=== PATIENT | female | born 1960 | race Caucasian/White ===

== ENCOUNTER → 2020-03-03 11:37 | Outpatient (BNVA) | payer MEDICAID, SELFPAY | PROVIDERS: PCP Pediatrics; Visit Provider Internal Medicine Endocrinology, Diabetes & Metabolism ==

== ENCOUNTER 2020-03-17 11:16 | Outpatient (REF) | payer MEDICAID, SELFPAY ==
[2020-03-17 14:08] LABS: Alanine Aminotransferase 15 U/L (0-31); Albumin Level 4.3 g/dL (3.5-5.0); Albumin Level 4.4 g/dL (3.5-5.0); Alkaline Phosphatase 39 U/L (39-117); Anion Gap 13 (12-20); Aspartate Amino Transferase 20 U/L (5-31); Bilirubin Total 0.4 mg/dL (0.0-1.0); Blood Urea Nitrogen 25 mg/dL (9-16); Calcium 9.2 mg/dL (8.4-10.2); Calcium 9.3 mg/dL (8.4-10.2); Carbon Dioxide 29 mmol/L (22-29); Chloride 106 mmol/L (96-108); Estimated Glomerular Filt Rate > 60; Glucose Fasting 81 mg/dL (60-99); Potassium 4.6 mmol/L (3.3-5.1); Sodium 143 mmol/L (135-145); Total Protein 6.8 g/dL (6.5-8.0)
[2020-03-17 14:39] LABS: Free T4 (Free Thyroxine) 0.95 ng/dL (0.71-1.85); Thyroid Stimulating Hormone 2.96 uIU/mL (0.32-4.0); Vitamin D 25-OH Total 39.3 ng/mL (>30)
[2020-03-23 14:47] LABS: N-Telopeptide 19 (see note); NTXCreaRU 215 mg/dL (20-275)
== END 2020-03-17 11:17 | disposition home or self-care (01) ==
LOC: HO.10HDL 11:16
PROVIDERS: Visit Provider Internal Medicine Endocrinology, Diabetes & Metabolism
DX: M81.0 Age-related osteoporosis without current pathological fracture (principal); R79.89 Other specified abnormal findings of blood chemistry
CPT/HCPCS: 36415; 80053; 82040; 82306; 82310; 82523; 84439; 84443

== ENCOUNTER 2020-05-08 16:05 | Outpatient (REF) | payer MEDICAID, SELFPAY ==
--- NOTE | ~2020-05-08 | MM_ITS ---
EXAMINATION: MM SCREENING DIGITAL BREAST TOMOSYNTHESIS, BILATERAL CLINICAL INFORMATION: Screening. Asymptomatic. The lifetime risk of breast cancer based on the Tyrer-Cuzick Model is 5.9%. COMPARISON: Mammography: December 03, 2018 and studies dating back to October 21, 2011 TECHNIQUE: Digital breast tomosynthesis is performed in both the craniocaudal and mediolateral oblique views along with computer-aided detection (CAD). Synthesized 2D images are generated from the tomosynthesis. FINDINGS: There are scattered areas of fibroglandular density (ACR BI-RADS breast composition Category b). There are no significant masses, abnormal calcifications, or other abnormalities. MM/MM tomosynthesis screening BI IMPRESSION: There are no significant changes from prior study. ASSESSMENT: BI-RADS 1: Negative RECOMMENDATION: Routine annual mammography screening. This patient's information was entered into a reminder system with a target due date for their next mammogram.
== END 2020-05-08 16:06 | disposition home or self-care (01) ==
LOC: HO.MAMMO 16:05
PROVIDERS: Visit Provider Pediatrics
DX: Z12.31 Encounter for screening mammogram for malignant neoplasm of breast (principal)
CPT/HCPCS: 77063; 77067

== ENCOUNTER 2020-12-29 09:59 | Outpatient (REF) | payer MEDICAID, SELFPAY ==
--- NOTE | ~2020-12-29 | MM_ITS ---
EXAMINATION: BONE DENSITOMETRY CLINICAL INDICATION: Age-related osteoporosis without current pathological fracture. COMPARISON: Previous BD dated 12/24/2018 and baseline BD dated 09/14/2007. TECHNIQUE: Using a [employer] DXA System (software version: 13.1) manufactured by [employer], dual-energy x-ray absorptiometry was performed of the lumbar spine and left hip. The images are of good technical quality. Summary results are attached. FINDINGS: AP SPINE L1-L4: Current: BMD 0.976 g/cm2, Z-score 0.2, T-score -1.7, osteopenia, 3.1% increase from previous, 2.1% increase from baseline (<5% change is not significant). Prior: BMD 0.947 g/cm2. Baseline: BMD 0.956 g/cm2. LEFT FEMUR, NECK: Current: BMD 0.629 g/cm2, Z-score -1.2, T-score -2.9, osteoporosis. Prior: BMD 0.643 g/cm2. Baseline: BMD 0.668 g/cm2. LEFT FEMUR, TOTAL: Current: BMD 0.665 g/cm2, Z-score -1.3, T-score -2.7, osteoporosis, 2.3% decrease from previous, 5.0% decrease from baseline (<5% change is not significant). Prior: BMD 0.681 g/cm2. Baseline: BMD 0.700 g/cm2. IDENTIFIED RISK FACTORS: Osteoporosis. Early menopause, secondary osteoporosis. HISTORY OF FRACTURE: None listed. MEDICATIONS: Calcium supplements or multivitamin, vitamin D. MM/XR DEXA axial skeleton IMPRESSION: 1. DIAGNOSIS: Osteoporosis based on the lowest T-score value of -2.9 in the femoral neck applying World Health Organization criteria. 2. 10-YEAR FRACTURE RISK PREDICTION, FRAX: According to the guidelines, FRAX calculation should only be performed on patients in the osteopenia bone density category. 3. Treatment Recommendations: NOF guidelines recommend consideration for treatment in postmenopausal women and men age 50 and older presenting with the following: -A hip or vertebral (clinical or morphometric) fracture. -T-score less than or equal to -2.5 at the femoral neck or spine after appropriate evaluation to exclude secondary causes. -Low bone mass at the hip or spine and a 10-year fracture probability by FRAX of greater than or equal to 3% for hip fracture or greater than or equal to 20% for major osteoporotic fracture based on the [place] adapted WHO algorithm. 4. Other Recommendations: All treatment decisions require clinical judgment and consideration of individual patient factors, including patient preferences, comorbidities, previous drug use, risk factors not captured in the FRAX model (e.g. frailty, falls, vitamin D deficiency, increased bone turnover, interval significant decline in bone density) and possible under or overestimation of fracture risk by FRAX. Additional medical evaluation for secondary cause of low bone mineral density may be appropriate. FUTURE SCAN RECOMMENDATION: People with diagnosed cases of osteoporosis or at high risk for fracture should have regular bone mineral density tests. For patients eligible for Medicare, routine testing is allowed once every 2 years. The testing frequency can be increased to one year for patients who have rapidly progressing disease, those who are receiving or discontinuing medical therapy to restore bone mass, or have additional risk factors.
== END 2020-12-29 10:00 | disposition home or self-care (01) ==
LOC: HO.MAMMO 09:59
PROVIDERS: Visit Provider Pediatrics
DX: Z13.820 Encounter for screening for osteoporosis (principal); M81.0 Age-related osteoporosis without current pathological fracture; Z78.0 Asymptomatic menopausal state; Z79.899 Other long term (current) drug therapy
CPT/HCPCS: 77080

== ENCOUNTER 2021-01-18 11:47 | Outpatient (REF) | payer MEDICAID, SELFPAY ==
--- NOTE | ~2021-01-18 | XR_ITS ---
EXAMINATION: XR CHEST CLINICAL INFORMATION: Shortness of breath COMPARISON: Chest CT from 12/27/2020. TECHNIQUE: 2 views of the chest were obtained. FINDINGS: The lungs are well expanded. There is no focal consolidation, edema, or effusion. No pneumothorax. The cardiomediastinal silhouette is within normal limits. No acute osseous abnormality. Scoliotic curvature of the spine. XR/XR chest 2V IMPRESSION: No acute pulmonary finding.
== END 2021-01-18 11:48 | disposition home or self-care (01) ==
LOC: HO.XRAY 11:47
PROVIDERS: Absent Provider Pediatrics; PCP Pediatrics; Visit Provider Nurse Practitioner Primary Care
DX: R06.02 Shortness of breath (principal)
CPT/HCPCS: 71046

== ENCOUNTER 2021-05-14 13:03 | Outpatient (REF) | payer MEDICAID, SELFPAY ==
--- NOTE | ~2021-05-14 | MM_ITS ---
EXAMINATION: MM SCREENING DIGITAL BREAST TOMOSYNTHESIS, BILATERAL CLINICAL INFORMATION: Screening. Asymptomatic. The lifetime risk of breast cancer based on the Tyrer-Cuzick Model is 4%. COMPARISON: Mammography: 05/08/2020, 12/03/2018, 12/01/2017 TECHNIQUE: Digital breast tomosynthesis is performed in both the craniocaudal and mediolateral oblique views along with computer-aided detection (CAD). Synthesized 2D images are generated from the tomosynthesis. FINDINGS: There are scattered areas of fibroglandular density (ACR BI-RADS breast composition Category b). There are no significant masses, abnormal calcifications, or other abnormalities. Parenchymal pattern is similar to prior studies. The axilla and skin contours are unremarkable. MM/MM tomosynthesis screening BI IMPRESSION: No mammographic evidence of malignancy. ASSESSMENT: BI-RADS 1: Negative RECOMMENDATION: Routine annual mammography screening. This patient's information was entered into a reminder system with a target due date for their next mammogram.
== END 2021-05-14 13:04 | disposition home or self-care (01) ==
LOC: HO.MAMMO 13:03
PROVIDERS: PCP Pediatrics; Visit Provider Pediatrics
DX: Z12.31 Encounter for screening mammogram for malignant neoplasm of breast (principal)
CPT/HCPCS: 77063; 77067

== ENCOUNTER 2021-07-13 07:23 | Outpatient (REF) | payer MEDICAID, SELFPAY | END 2021-07-13 07:24 | disposition home or self-care (01) | LOC: HO.HOSX 07:23 | PROVIDERS: Visit Provider Physician Assistant | DX: Z13.89 Encounter for screening for other disorder (principal) ==

== ENCOUNTER 2021-07-26 07:15 | Outpatient (REF) | payer MEDICAID, SELFPAY ==
--- NOTE | ~2021-07-26 | XR_ITS ---
EXAMINATION: XR FOOT, RIGHT CLINICAL INFORMATION: Pain COMPARISON: None TECHNIQUE: AP, lateral, and oblique views of the right foot. FINDINGS: Comminuted mildly displaced fracture involving the base of the fifth metatarsal. Correlation with point tenderness. Joint spaces and alignment are otherwise maintained. Soft tissues are unremarkable. XR/XR foot RT min 3V IMPRESSION: Comminuted mildly displaced fracture involving the base of the fifth metatarsal. Correlation with point tenderness.
== END 2021-07-26 07:16 | disposition home or self-care (01) ==
LOC: HO.HOSX 07:15
PROVIDERS: Visit Provider Physician Assistant
DX: M79.673 Pain in unspecified foot (principal); S92.354A Nondisplaced fracture of fifth metatarsal bone, right foot, initial encounter for closed fracture; X58.XXXA Exposure to other specified factors, initial encounter; Y93.9 Activity, unspecified; Y92.9 Unspecified place or not applicable; Y99.8 Other external cause status
CPT/HCPCS: 73630; 99202

== ENCOUNTER 2021-08-30 14:52 | Outpatient (REF) | payer MEDICAID, SELFPAY ==
[2021-08-30 15:07] LABS: MANUAL DIFF FLAG NO
[2021-08-30 15:50] LABS: Basophils Absolute Auto 0.1 X10*3/uL (0.0-0.2); Basophils Percent Auto 0.7 % (0-2); Eosinophils Absolute Auto 0.2 X10*3/uL (0.0-0.4); Eosinophils Percent Auto 1.9 % (0-4); Hematocrit 38.1 % (37.0-47.0); Imm Gran Abs Auto 0.01 X10*3/uL (0.00-0.03); Imm Gran Pct Auto 0.1 % (0.0-0.4); Lymphocytes Absolute Auto 2.8 X10*3/uL (1.2-4.9); Lymphocytes Percent Auto 33.9 % (20-40); Mean Corpuscular HGB Conc 31.5 g/dl (31.0-35.0); Mean Corpuscular Hemoglobin 26.3 pg (27.0-33.0); Mean Corpuscular Volume 83.4 fL (80.0-98.0); Mean Platelet Volume 11.5 fL (9.4-12.3); Monocytes Absolute Auto 0.6 X10*3/uL (0.1-1.2); Monocytes Percent Auto 6.6 % (2-11); Neutrophils Absolute Auto 4.7 x10*3/uL (2.0-8.3); Neutrophils Percent Auto 56.8 % (45-73); Platelet Count 262 X10*3/uL (160-400); Red Blood Count 4.57 X10*6/uL (4.20-5.50); Red Cell Distribution Width 14.9 % (11.0-16.0); White Blood Count 8.3 X10*3/uL (4.8-10.8)
[2021-08-30 16:10] LABS: Alanine Aminotransferase 11 U/L (0-31); Albumin Level 4.5 g/dL (3.5-5.0); Alkaline Phosphatase 34 U/L (39-117); Anion Gap 12 (12-20); Aspartate Amino Transferase 20 U/L (5-31); Bilirubin Total 0.2 mg/dL (0.0-1.0); Blood Urea Nitrogen 21 mg/dL (9-16); Calcium 9.8 mg/dL (8.4-10.2); Carbon Dioxide 29 mmol/L (22-29); Chloride 105 mmol/L (96-108); Estimated Glomerular Filt Rate > 60; Glucose Random 75 mg/dL (60-115); Potassium 4.5 mmol/L (3.3-5.1); Sodium 141 mmol/L (135-145); Total Protein 6.9 g/dL (6.5-8.0)
== END 2021-08-30 14:53 | disposition home or self-care (01) ==
LOC: HO.LAB 14:52
PROVIDERS: Visit Provider Nurse Practitioner
DX: Z01.818 Encounter for other preprocedural examination (principal)
CPT/HCPCS: 36415; 80053; 85025; 99202; 99212

== ENCOUNTER 2022-01-25 09:33 | Day surgery (SDC) | payer MEDICAID, SELFPAY ==
--- NOTE | 2022-01-24 12:05 | HO.ANESPROP2 ---
Documented by User: Beverly Donohue NP 01/24/22 12:07 HPI - Anesthesia Eval Consult details Narrative: 61yo F for Colonoscopy PMFSH Active Problems Active Problems: All Active Problems (Updated 01/22/22 @ 10:29 by Mildred Adams, RN) Fracture of metatarsal bone of right foot (Acute) Pre-op examination (Acute) Elevated TSH (Acute) Vitamin D deficiency (Acute) Osteoporosis (Acute) Past Medical History Medical History (Updated 01/22/22 @ 10:29 by Mildred Adams RN) Back pain Elevated cholesterol Elevated TSH Osteoporosis Vitamin D deficiency Family History Family History Father No problems noted. Mother Diabetes mellitus Surgical History Surgical History (Updated 01/22/22 @ 10:29 by Mildred Adams RN) History of foot surgery History of tubal ligation Hx of colonoscopy Social History Social History Patient Tobacco Use Status: Former Tobacco user Tobacco use type: Cigarette Use of substances other than those prescribed or required for medical reasons: No Are you DNR?: No Advance Directives: No Advance Directives Information Provided: Yes Meds Allergies Allergy/AdvReac Type Severity Reaction Status Date / Time amoxicillin [Amoxicillin] Allergy Severe ANAPHYLAXIS Verified 01/25/22 10:06 Penicillins Allergy Severe ANAPHYLAXIS Verified 01/25/22 10:06 naproxen [Naproxen] Allergy Intermediate PALPITATION Verified 01/25/22 10:06 S Home Medications Medication Instructions Recorded Confirmed Last Taken Type simvastatin 20 mg tablet 20 mg PO BEDTIME 03/03/20 01/22/22 Unknown History cetirizine 10 mg tablet 1 tab PO DAILY 01/22/22 01/22/22 Unknown History Exam Exam Date and Time: January 24, 2022 1205 Pertinent Lab Results Pertinent Lab Results: Laboratory Tests 08/30/21 08/30/21 15:06 15:06 WBC 8.3 Hgb 12.0 Hct 38.1 Plt Count 262 Sodium 141 Potassium 4.5 Chloride 105 Carbon Dioxide 29 BUN 21 H Creatinine 0.79 Assessment and Plan Assessment Anesthesia Assessment: Chart Reviewed Documented by User: Vicky Wong MD 01/25/22 10:07 [facility] Past Medical History Medical History (Updated 01/22/22 @ 10:29 by Mildred Adams, RN) Back pain Elevated cholesterol Elevated TSH Osteoporosis Vitamin D deficiency Functional capacity: independent ambulation Family History Family History Father No problems noted. Mother Diabetes mellitus Family history of problems with anesthesia: No Surgical History Surgical History (Updated 01/22/22 @ 10:29 by Mildred Adams, JORDANA) History of foot surgery History of tubal ligation Hx of colonoscopy History of Problems with Anesthesia: Yes Social History Social History Patient Tobacco Use Status: Former Tobacco user Tobacco use type: Cigarette Use of substances other than those prescribed or required for medical reasons: No Are you DNR?: No Advance Directives: No Advance Directives Information Provided: Yes Meds Allergies Allergy/AdvReac Type Severity Reaction Status Date / Time amoxicillin [Amoxicillin] Allergy Severe ANAPHYLAXIS Verified 01/25/22 10:06 Penicillins Allergy Severe ANAPHYLAXIS Verified 01/25/22 10:06 naproxen [Naproxen] Allergy Intermediate PALPITATION Verified 01/25/22 10:06 S Home Medications Medication Instructions Recorded Confirmed Last Taken Type simvastatin 20 mg tablet 20 mg PO BEDTIME 03/03/20 01/22/22 Unknown History cetirizine 10 mg tablet 1 tab PO DAILY 01/22/22 01/22/22 Unknown History Exam Airway Mallampati Class: II TM Dist: >3cm Neck ROM: Full Loose/Missing/Broken Teeth: Yes (17,18) Heart: rr Lungs: cta Assessment and Plan Final Anesthetic Review Family History of Problems with Anesthesia: No History of Problems with Anesthesia: Yes NPO: Yes ASA Class: II Final Preanesthetic Review: No Changes in Pt Med Stat, Meds/Allgs Chart Reviewed, Consent Obtained/Reviewed and Anes Risks/Benef Reviewed Patient Risk: Low Procedure Risk: Low Anesthetic Plan Anesthetic Plan: MAC: and Agree w/ Assess. and Plan Disposition: Standard PACU
[2022-01-25 09:49] VITALS: BMI 22.3
[2022-01-25 10:02] VITALS: BP 129/63; PULSE 66; RESP 16; TEMP 36.1; O2SAT 99
[2022-01-25] MEDS: Lactated Ringers 1,000 ML 100 ML IVCONT (10:14)
--- NOTE | 2022-01-25 10:21 | MHC.SHP ---
Pre-Procedural Eval Section A Date of Service: 01/25/22 The patient is an INPATIENT: No The History & Physical has been completed within 30 days and I have reviewed it.: No Section B Chief Complaint: screening Details of Present Illness: Colon cancer screening Relevant Family History (Specify if Yes): No Relevant Social History: Tobacco Use ( former smoker) Present Medications: see Short Stay Collaborative assessment Medical History: Significant History (Elevated TSH Osteoporosis Vitamin D deficiency) History of Previous Operations: Relevant previous surgery/procedure and date(s) (History of foot surgery History of tubal ligation Hx of colonoscopy) Allergies: Allergies Allergy/AdvReac Type Severity Reaction Status Date / Time amoxicillin [Amoxicillin] Allergy Severe ANAPHYLAXIS Verified 01/25/22 10:06 Penicillins Allergy Severe ANAPHYLAXIS Verified 01/25/22 10:06 naproxen [Naproxen] Allergy Intermediate PALPITATION Verified 01/25/22 10:06 S lidocaine AdvReac Intermediate Shakiness Verified 01/25/22 10:21 Review of Systems Sugical H&P ROS: Negative: Constitution, Cardiovascular, Respiratory and Gastrointestinal Exam Surgical H&P Exam: Normal: Heart, Normal: Lungs, Normal: Extremities and Normal: Abdomen Plan Diagnosis/Plan: Unchanged I have reviewed the history and physical and performed a pertinent physical examination on my patient. No changes have occurred unless specified. Time Spent With Patient Time: Total time managing care of this patient today ____ minutes.
--- NOTE | 2022-01-25 10:35 | P.BOP_ITS ---
Brief Operative Note Date of Service: 01/25/22 Pre-op diagnosis: Colon cancer screening Post-op diagnosis: other ( diverticulosis) Procedure: COLONOSCOPY TILL CECUM Surgeon: Genesis Zamudio MD Anesthesia: MAC Was an Physical Education Teacher used for this Procedure?: Yes Physical Education Teacher: Andrea Tan Estimated blood loss (mL): 0 Pathology: none sent Condition: stable Disposition: PACU
--- NOTE | 2022-01-25 10:36 | W.PM.OPN ---
Operative Note Operative Note Date of Service: 01/25/22 Narrative: Pre-op diagnosis: Colon cancer screening Post-op diagnosis:?other ( diverticulosis) Surgeon: Genesis Zamudio MD Anesthesia:?MAC COLONOSCOPY TILL CECUM Consent: Indications for the procedure and potential complications of bleeding, perforation, reaction to medications and missed diagnosis were discussed with the patient and informed consent was obtained. Instrument: Olympus PCF H 190 L variable stiffness pediatric colonoscope Monitoring: Vital signs and clinical assessment, intermittent blood pressure monitoring, continuous EKG monitoring, Pulse oximetry and Carbon Dioxide monitoring were done throughout the procedure. Colon withdrawl time was 13 minutes. Procedure: The patient was placed in the left lateral decubitis position and pre-procedure medications were administered. After a digital rectal examination of the ano-rectum, the video colonoscope was inserted into the rectum and advanced through the colon to the cecum. The colonoscope was slowly withdrawn in a retrograde panoramic fashion and the colon mucosa was carefully examined including a retroflexed view of the rectum. Findings and interventions are described below. Procedure Difficulty: Without difficulty Findings: Terminal Ileum: Not evaluated Cecum: Normal Ascending Colon: Normal Transverse Colon: Normal Descending Colon: Moderate diverticulosis Sigmoid Colon: Severe diverticulosis with luminal narrowing Rectum: Normal Ano-rectum: Normal Colon preparation: Excellent Impression and Post Procedure Diagnosis: Colonoscopy Findings: no polyps were detected Moderate diverticulosis seen in the left colon Plan: Repeat Colonoscopy in 10 years. Above findings were reviewed with the patient and diverticulosis handouts were given in the discharge area
[2022-01-25 11:10] VITALS: BP 124/65; PULSE 73; RESP 14; TEMP 36.4; O2SAT 99
[2022-01-25 11:25] VITALS: BP 120/66; PULSE 60; RESP 12; O2SAT 100
[2022-01-25 11:40] VITALS: BP 138/69; PULSE 56; RESP 16; TEMP 36.4; O2SAT 100
== END 2022-01-25 12:41 | disposition home or self-care (01) ==
PROVIDERS: PCP Pediatrics; Visit Provider Internal Medicine Gastroenterology
PROC: 0DJD8ZZ Inspection of Lower Intestinal Tract, Via Natural or Artificial Opening Endoscopic (ICD-10-PCS; CPT 45378; principal; 2022-01-25 10:30)
DX: Z12.11 Encounter for screening for malignant neoplasm of colon (principal); K57.30 Diverticulosis of large intestine without perforation or abscess without bleeding; M81.0 Age-related osteoporosis without current pathological fracture; R94.6 Abnormal results of thyroid function studies; E55.9 Vitamin D deficiency, unspecified; Z79.899 Other long term (current) drug therapy; Z88.0 Allergy status to penicillin; Z88.8 Allergy status to other drugs, medicaments and biological substances; Z87.891 Personal history of nicotine dependence
CPT/HCPCS: 45378; J2405

== ENCOUNTER 2022-05-20 12:54 | Outpatient (REF) | payer MEDICAID, SELFPAY ==
--- NOTE | ~2022-05-20 | MM_ITS ---
EXAMINATION: MM SCREENING DIGITAL BREAST TOMOSYNTHESIS, BILATERAL CLINICAL INFORMATION: Screening. Asymptomatic. The lifetime risk of breast cancer based on the Tyrer-Cuzick Model is 5%. COMPARISON: Mammography: 05/14/2021, 05/08/2020, 12/03/2018 TECHNIQUE: Digital breast tomosynthesis is performed in both the craniocaudal and mediolateral oblique views along with computer-aided detection (CAD). Synthesized 2D images are generated from the tomosynthesis. FINDINGS: There are scattered areas of fibroglandular density (ACR BI-RADS breast composition Category b). There are no significant masses, abnormal calcifications, or other abnormalities. No architectural abnormality or developing density or significant change from prior studies. The axilla and skin contours are unremarkable. MM/MM tomosynthesis screening BI IMPRESSION: No mammographic evidence of malignancy. ASSESSMENT: BI-RADS 1: Negative RECOMMENDATION: Routine annual mammography screening. This patient's information was entered into a reminder system with a target due date for their next mammogram.
== END 2022-05-20 12:55 | disposition home or self-care (01) ==
LOC: HO.MAMMO 12:54
PROVIDERS: PCP Pediatrics; Visit Provider Pediatrics
DX: Z12.31 Encounter for screening mammogram for malignant neoplasm of breast (principal)
CPT/HCPCS: 77063; 77067

== ENCOUNTER 2022-08-21 11:22 | Outpatient (REF) | payer MEDICAID, SELFPAY ==
[2022-08-21 14:13] LABS: MANUAL DIFF FLAG NO
[2022-08-21 14:33] LABS: Basophils Absolute Auto 0.1 X10*3/uL (0.0-0.2); Basophils Percent Auto 0.7 % (0-2); Eosinophils Absolute Auto 0.3 X10*3/uL (0.0-0.4); Eosinophils Percent Auto 3.3 % (0-4); Hematocrit 41.8 % (37.0-47.0); Imm Gran Abs Auto 0.02 X10*3/uL (0.00-0.03); Imm Gran Pct Auto 0.2 % (0.0-0.4); Lymphocytes Absolute Auto 2.5 X10*3/uL (1.2-4.9); Lymphocytes Percent Auto 28.8 % (20-40); Mean Corpuscular HGB Conc 31.1 g/dl (31.0-35.0); Mean Corpuscular Hemoglobin 25.5 pg (27.0-33.0); Mean Corpuscular Volume 82.1 fL (80.0-98.0); Mean Platelet Volume 11.6 fL (9.4-12.3); Monocytes Absolute Auto 0.6 X10*3/uL (0.1-1.2); Monocytes Percent Auto 6.9 % (2-11); Neutrophils Absolute Auto 5.2 x10*3/uL (2.0-8.3); Neutrophils Percent Auto 60.1 % (45-73); Platelet Count 272 X10*3/uL (160-400); Red Blood Count 5.09 X10*6/uL (4.20-5.50); Red Cell Distribution Width 14.8 % (11.0-16.0); White Blood Count 8.7 X10*3/uL (4.8-10.8)
[2022-08-21 16:16] LABS: Alanine Aminotransferase 16 U/L (0-31); Albumin Level 4.4 g/dL (3.5-5.0); Alkaline Phosphatase 37 U/L (39-117); Anion Gap 15 (12-20); Aspartate Amino Transferase 22 U/L (5-31); Bilirubin Direct 0.1 mg/dL (0.0-0.5); Bilirubin Total 0.5 mg/dL (0.0-1.0); Blood Urea Nitrogen 22 mg/dL (9-16); Carbon Dioxide 24 mmol/L (22-29); Chloride 107 mmol/L (96-108); Cholesterol 223 mg/dL; Estimated Glomerular Filt Rate > 60; Glucose Random 70 mg/dL (60-115); HDL Cholesterol 58 mg/dL; LDL Cholesterol Calculated 145 mg/dl; Potassium 4.2 mmol/L (3.3-5.1); Sodium 142 mmol/L (135-145); Triglycerides 101 mg/dL
[2022-08-21 16:23] LABS: Vitamin D 25-OH Total 49.6 ng/mL (>30)
== END 2022-08-21 11:23 | disposition home or self-care (01) ==
LOC: HO.CHCLDS 11:22
PROVIDERS: Visit Provider Pediatrics
DX: E78.5 Hyperlipidemia, unspecified (principal); M81.0 Age-related osteoporosis without current pathological fracture
CPT/HCPCS: 36415; 80048; 80061; 80076; 82306; 85025

== ENCOUNTER 2022-12-31 14:06 | Outpatient (REF) | payer MEDICAID, SELFPAY ==
--- NOTE | ~2022-12-31 | MM_ITS ---
EXAMINATION: BONE DENSITOMETRY CLINICAL INDICATION: Other specified disorders of bone density and structure. COMPARISON: Previous BD dated 12/29/2020 and baseline BD dated 09/14/2007. TECHNIQUE: Using a [employer] DXA System (software version: 13.1) manufactured by [employer], dual-energy x-ray absorptiometry was performed of the lumbar spine and left hip. The images are of good technical quality. Summary results are attached. FINDINGS: LEFT FEMUR, NECK: Current: BMD 0.675 g/cm2, Z-score -0.9, T-score -2.6, osteoporosis. Prior: BMD 0.629 g/cm2. Baseline: BMD 0.668 g/cm2. LEFT FEMUR, TOTAL: Current: BMD 0.688 g/cm2, Z-score -1.1, T-score -2.5, osteoporosis, 3.5% increase from previous, 1.7% decrease from baseline (<5% change is not significant). Prior: BMD 0.665 g/cm2. Baseline: BMD 0.700 g/cm2. AP SPINE L1-L4: Current: BMD 1.015 g/cm2, Z-score 0.6, T-score -1.4, osteopenia, 4.0% increase from previous, 6.2% increase from baseline (<5% change is not significant). Prior: BMD 0.976 g/cm2. Baseline: BMD 0.956 g/cm2. IDENTIFIED RISK FACTORS: Early menopause, secondary osteoporosis. HISTORY OF FRACTURE: None listed. MEDICATIONS: Calcium supplements or multivitamin, vitamin D. MM/XR DEXA axial skeleton IMPRESSION: 1. DIAGNOSIS: Osteoporosis based on the lowest T-score value of -2.6 in the femoral neck applying World Health Organization criteria. 2. 10-YEAR FRACTURE RISK PREDICTION, FRAX: According to the guidelines, FRAX calculation should only be performed on patients in the osteopenia bone density category. Therefore, FRAX was not performed on this patient. 3. Treatment Recommendations: NOF guidelines recommend consideration for treatment in postmenopausal women and men age 50 and older presenting with the following: -A hip or vertebral (clinical or morphometric) fracture. -T-score less than or equal to -2.5 at the femoral neck or spine after appropriate evaluation to exclude secondary causes. -Low bone mass at the hip or spine and a 10-year fracture probability by FRAX of greater than or equal to 3% for hip fracture or greater than or equal to 20% for major osteoporotic fracture based on the [place] adapted WHO algorithm. 4. Other Recommendations: All treatment decisions require clinical judgment and consideration of individual patient factors, including patient preferences, comorbidities, previous drug use, risk factors not captured in the FRAX model (e.g. frailty, falls, vitamin D deficiency, increased bone turnover, interval significant decline in bone density) and possible under or overestimation of fracture risk by FRAX. Additional medical evaluation for secondary cause of low bone mineral density may be appropriate. FUTURE SCAN RECOMMENDATION: People with diagnosed cases of osteoporosis or at high risk for fracture should have regular bone mineral density tests. For patients eligible for Medicare, routine testing is allowed once every 2 years. The testing frequency can be increased to one year for patients who have rapidly progressing disease, those who are receiving or discontinuing medical therapy to restore bone mass, or have additional risk factors.
== END 2022-12-31 14:07 | disposition home or self-care (01) ==
LOC: HO.MAMMO 14:06
PROVIDERS: PCP Pediatrics; Visit Provider Pediatrics
DX: Z13.820 Encounter for screening for osteoporosis (principal); M85.80 Other specified disorders of bone density and structure, unspecified site; Z78.0 Asymptomatic menopausal state
CPT/HCPCS: 77080

== ENCOUNTER 2023-05-26 13:12 | Outpatient (REF) | payer MEDICAID, OTHER, SELFPAY | END 2023-05-26 13:13 | disposition home or self-care (01) | LOC: HO.MAMMO 13:12 | PROVIDERS: PCP Pediatrics; Visit Provider Pediatrics | DX: Z12.31 Encounter for screening mammogram for malignant neoplasm of breast (principal) | CPT/HCPCS: 77063; 77067 ==

== ENCOUNTER → 2023-05-26 13:30 | Outpatient (BNV) | payer MEDICARE, MEDICAID, SELFPAY | PROVIDERS: PCP Pediatrics; Visit Provider Radiology Diagnostic Radiology | DX: Z12.31 Encounter for screening mammogram for malignant neoplasm of breast (principal) | CPT/HCPCS: 77063; 77067 ==

== ENCOUNTER 2024-05-20 10:06 | Outpatient (REF) | payer OTHER, SELFPAY ==
--- OUTSIDE RECORDS SUMMARY | 2024-05-20 11:46 | XMS_ITS | Encounter Summary ---
Author Organization [employer] Address [address] [place] [address] Care Team Providers Care [employer] Supervisor Name Role Phone Shae Villalba MD Primary Care Provider [phone] Reason for Visit * Reason Onset Date Comments Medication Question 02/21/2022 Encounter Details Date Type Department Care Team ([facility] Contact Info) Description 02/21/2022 Telephone [facility] MED & PEDS [address], [place] [phone] Shae Villalba MD [address] [place], [place] [phone] Medication Question Social History Tobacco Use Types Packs/Day Years Used Date Smoking Tobacco: Never Assessed Comments Unknown Sex and Gender Information Value Date Recorded Sex Assigned at Female 12/10/2021 10:16 AM EDT Legal Sex Female 10:16 AM EDT Gender Identity Female 12/10/2021 10:16 AM EDT Sexual Orientation Straight 12/10/2021 10 :16 AM EDT documented as of this encounter Miscellaneous Notes * Telephone Encounter - Naomie Vallecillo RN - 02/21/2022 2:43 PM EST Please review message below and advise. Thank you. * Telephone Encounter - Jaylin Humphreys - 02/21/2022 11:53 AM EST Tc from pt returning call regarding message below Pt will like to know if she is to continue on the calcium carbonate- vit D 3 600. Advised med was stopped on 12/02/2011 and she is currently on vit D. Pt will like PCP to clarify if she should cont on medication. And if PCP agrees then Rx will need to be sent to the pharmacy. documented in this encounter Plan of Treatment Upcoming Encounters Date Type Department Care Team ([facility] st Contact Info) Description 06/10/2024 1:15 PM EDT Clinical Support [facility] MED & PEDS [address] [place] [phone] 11/16/2024 2:00 PM EDT Office Visit [facility] ADULT DENT[facility] [address] [place] [address] Joe Banda documented as of this encounter Visit Diagnoses Not on filedocumented in this encounter Care Teams [employer] Supervisor Relationship Specialty Start Date End Date Shae Villalba MD [address] [place] [id number] PCP - General Family Medicine 02/10/18 documented as of this encounter
--- OUTSIDE RECORDS SUMMARY | 2024-05-20 11:46 | XMS_ITS | Clinical Summary ---
Author Organization [employer] Address [address] [facility] 7t [place] [address] Care Team Providers Care Public Health Representative Name Role Phone Shae Villalba MD Primary Care Provider [phone] Allergies Active Allergy Reactions Criticality Noted Date Comments Amoxicillin Anaphylaxis High 11/26/2011 Other reaction(s): Hives Epinephrine 12/03/2012 Lidocaine 12/03/2012 Naproxen Anxiety Low 11/26/2011 Penicillins Anaphylaxis High Other reaction(s): Unknown, unspecified Medications diphenhydrAMINE (Benadryl Allergy) 25 MG tablet Take 1 tablet by mouth. 06/01/19 22 Active EPINEPHrine (EpiPen 2-Juvencio) 0.3 MG/0.3ML injection syringe Inject 0.3 mL into the shoulder, thigh, or buttocks. 01/17/20 21 Active cetirizine (ZyrTEC) 10 MG tablet TAKE 1 TABLET BY MOUTH EVERY DAY 90 tablet 2 07/28/19 24 Active Multiple Vitamin (One-Daily Multi-Vitamin) tablet Take 1 tablet by mouth in the morning. 08/03/19 24 Active ibuprofen 800 MG tablet Take 1 tablet (800 mg) by mouth every 8 (eight) hours. 90 tablet 1 11/13/19 24 Active acetaminophen (Acetaminophen 8 Hour) 650 MG ER tabletIndication s:Viral syndrome Take 1 tablet (650 mg) by mouth every 8 (eight) hours if needed (pain or fever). Do not crush, chew, or split. 90 tablet 1 11/21/19 24 025 Active simvastatin (Zocor) 20 MG tablet TAKE 1 TABLET BY MOUTH EVERY DAY IN THE EVENING 90 tablet 3 02/23/19 25 Active D3-1000 25 MCG (1000 UT) capsuleIndicatio ns:Vitamin D deficiency TAKE 1 CAPSULE BY MOUTH IN THE MORNING. 90 capsule 3 02/23/19 25 Active Blood Pressure kitIndications:E levated BP without diagnosis of hypertension Check BP daily 1 kit 05/14/19 25 Active Calcium Carb-Cholecalcif rene (Calcium Plus Vitamin D3) 600-20 MG-MCG tabletIndication s:Osteopenia of hip, unspecified laterality Take 1 tablet by mouth 2 times daily. 180 tablet 3 02/21/19 23 025 Discontinued(Co st of medication) nicotine polacrilex (Nicorette) 2 MG gum chew 1 piece of gum by oral route and place in side of cheek up to every 2 hours as needed and as directed 01/17/20 21 025 Discontinued(Th erapy completed) cyclobenzaprine (Flexeril) 5 MG tablet Take 1 tablet (5 mg) by mouth every 12 (twelve) hours. 30 tablet 11/13/19 24 025 Discontinued(Th erapy completed) Blood Pressure kitIndications:E levated BP without diagnosis of hypertension Check BP daily 1 kit 05/14/19 25 025 Discontinued(Re order (will not trigger notification to Pharmacy)) Active Problems Problem Noted Date Diagnosed Date Lumbar back pain with radicu lopathy affecting left lower extremity 11/13/2023 Assessment & Plan (11/17/2023 11:04 AM EDT): Ddx SI J dysfunction Relevant orders: Cyclobenzaprine (Flexeril) 5 MG tablet- muscle spasms Ibuprofen 800 MG tablet- pain Dyslipidemia 02/01/2015 01/23/2023 Nicotine dependence 02/01/2015 01/23/2023 Hypercholesterolemia 10/15/2012 03/13/2023 Osteoporosis 12/02/2011 01/23/2023 Encounters Date Type Department Care Team Description 05/13/2024 2:15 PM EDT Office Visit [facility] [address] [place] [address] Shae Villalba MD Dyslipidemia (Primary Dx); Age-related osteoporosis without current pathological fracture; Vitamin D deficiency; Elevated BP without diagnosis of hypertension; Routine general medical examination at a health care facility 05/13/2024 Travel 05/11/2024 2:00 PM EDT Office Visit [facility] [address] [place] [address] Joe Banda Dental calculus (Primary Dx) 05/11/2024 Telephone [facility] [address] [place] [address] Shae Villalba MD Chart Prep 05/05/2024 Patient Outreach [facility] [address] [place], [place] [phone] Shae Villalba MD Pre-visit Planning (SDOH screening negative and Tobacco screening negative) 04/01/2024 2:30 PM EST Office Visit [facility] [address] [place] [address] Jocy Hall DMD 03/02/2024 Telephone [facility] [address] [place], [place] [phone] Elba Ryan rs appt 02/27/2024 Telephone [facility] [address] [place], [place] [phone] Shae Villalba MD Nurse Triage 02/23/2024 Refill [facility] [address] [place], [place] [phone] Shae Villalba MD Vitamin D deficiency from Last 3 Months Immunizations Name Administration Dates Next Due Hep B, adult 12/02/2011 Influenza Injectable Quadriv alant Preservative Free IIV4 MDCK 12/15/2022,10/26/2019 Influenza injectable quadriv alent preservative free 12/06/2021,11/23/2020,10/19/2018,11/09,10/13/2016,11/08/2015,10/06/2014 Influenza, High Dose Seasona l, Preservative Free 10/28/2023 Influenza, IIV3, injectable 11/11/2013 Influenza, Split (incl. isaías fied surface antigen) 10/15/2012,11/26/2011 Pneumococcal Conjugate PCV 20 08/03/2023 Pneumococcal Polysaccharide PPSV23 01/25/2013 RSV Adjuvant 10/28/2023 Tdap 11/26/2011 Zoster, Recombinant 01/11/2020 Social History Tobacco Use Types Packs/Day Years Used Date Smoking Tobacco: Former Cigarettes 1 10 Passive Smoke Exposure: Never Smokeless Tobacco: Never Tobacco Cessation:Counseling Given: Not Answered Alcohol Use Standard Drinks/Week Comments Yes 1 (1 standard drink = 0.6 oz pur e alcohol) Depression Answer Date Recorded Patient Health Questionnaire-9 Score 0 05/13/2024 Patient Health Questionnaire-9 Score 0 05/13/2024 Last PHQ-9: Questionnaire Data Not on file 0 05/13/2024 Housing Stability Answer Date Recorded What is your housing situation today? I have raffy gayle 05/05/[address] you li ve. Do you have problems with any of the following? None of the above 05/05/2024 Food Insecurity Answer Date Recorded Within the past 12 months, y ou worried that your food would run out before you got money to buy more: Never True 05/05/2024 Within the past 12 months,th e food you bought just didn't last and you didn't have enough money to get more: Never True Transportation Answer Date Recorded In the past 12 months, has l ack of transportation kept you from medical appts, meetings, work or from getting things needed for daily living? No 05/05/2024 Utilities Answer Date Recorded In the past 12 months, has t he electric, gas, oil or water company threatened to shut off services in your home? No 05/05/2024 Depression Answer Date Recorded Patient Health Questionnaire-2 Score 0 05/13/2024 Internet Access Answer Date Recorded Internet Access Q1 Yes 05/05/2024 Internet Access Q2 Not on file 05/05/2024 Comments No Sex and Gender Information Value Date Recorded Sex Assigned at Female 12/10/2021 10:16 AM EDT Legal Sex Female 10:16 AM EDT Gender Identity Female 12/10/2021 10:16 AM EDT Sexual Orientation Straight 12/10/2021 10 :16 AM EDT Last Filed Vital Signs Vital Sign Reading Time Taken Comments Blood Pressure 146/72 05/13/2024 1:50 PM EDT Pulse 74 05/13/2024 1:50 PM EDT Temperature 36 ??C (96.8 ??F) 05/13/2024 1:50 PM EDT Respiratory Rate 16 05/13/2024 1:50 PM EDT Oxygen Saturation 99% 05/13/2024 1:50 PM EDT Inhaled Oxygen Concentration - - Weight 48.1 kg (106 lb) 05/13/2024 1:50 PM EDT Height 154.9 cm (5' 1 ) 05/13/2024 1:50 PM EDT Body Mass Index 20.03 05/13/2024 1:50 PM EDT Plan of Treatment Upcoming Encounters Date Type Department Care Team (Late st Contact Info) Description 06/10/2024 1:15 PM EDT Clinical Support [facility] [address] [place] [address] 11/16/2024 2:00 PM EDT Office Visit [facility] [address] [place] [address] Joe Banda Health Maintenance Due Date Last Done Comments CT Colonography 1958 Dental X-Ray: Full Mouth 1958 FIT DNA/Cologuard 1960 FIT 1960 FOBT 1960 Sigmoidoscopy 1960 Hepatitis C Screening 1976 Hepatitis B Vaccines (2 of 3 - 19+ 3-dose series) 12/30/2011 12/02/2011 Zoster Vaccines (2 of 2) 03/07/2020 01/11/2020 DTaP/Tdap/Td Vaccines (2 - Td or Tdap) 11/25/2021 11/26/2011 COVID-19 Vaccine (1 - season) 2023 Dental X-Ray: Bitewings 11/06/2024 11/06/2023, 09/24 Dental Oral Exam 11/11/2024 05/11/2024, , 04/03/2023, Additional history exists Dental Prophylaxis 11/11/2024 05/11/2024, 0 11/06/2023, 04/03/2023, Additional history exists SDOH Screening 05/05/2025 05/05/2024 Alcohol/Substance Use Screening 05/13/2025 05/13/2024 Depression Screening 05/13/2025 05/13/2024, 05/14/19 Tobacco Screening 05/13/2025 05/13/2024 Mammogram 05/25/2025 05/26/2023, 0406/2023, 05/20/2022, Additional history exists Cervical Cancer Screening 12/24/2025 HPV/Cotest 12/24/2025 Pap Smear 12/24/2025 12/24/2022 Colonoscopy 01/26/2032 01/25/2022 Colorectal Cancer Screening 01/26/2032 Pneumococcal Vaccine: 50+ Years Completed 08/03/2023, 01/25/2013 Influenza Vaccine Completed 10/28/2023, , 12/06/2021, Additional history exists RSV Patients and Patients Aged 60 years or older Completed 10/28/2023 HIB Vaccines Aged Out No longer eligi ble based on patient's age to complete this topic HPV Vaccines Aged Out No longer eligi ble based on patient's age to complete this topic Hepatitis A Vaccines Aged Out No long er eligible based on patient's age to complete this topic IPV Vaccines Aged Out No longer eligi ble based on patient's age to complete this topic Meningococcal Vaccine Aged Out No akua alanis eligible based on patient's age to complete this topic RSV under 20 months Aged Out No longe r eligible based on patient's age to complete this topic Rotavirus Vaccines Aged Out No longer eligible based on patient's age to complete this topic Procedures Procedure Name Priority Date/Time Associated Diagnosis Comments PERIODIC ORAL EVALUATION - ESTABLISHED PATIENT Routine 05/11/2024 2:00 PM EDT CASE PRESENTATION, DETAILED AND EXTENSIVE TREATMENT PLANNING Routine 05/11/2024 2:00 PM EDT ORAL HYGIENE INSTRUCTIONS Routine 05/11/2024 2:00 PM EDT PROPHYLAXIS - ADULT Routine 05/11/2024 2 :00 PM EDT CASE PRESENTATION, DETAILED AND EXTENSIVE TREATMENT PLANNING Routine 04/01/2024 2:30 PM EST INTRAORAL - PERIAPICAL EACH ADDITIONAL RADIOGRAPHIC IMAGE Routine 04/01/2024 2:30 PM EST INTRAORAL - PERIAPICAL FIRST RADIOGRAPHIC IMAGE Routine 04/01/2024 2:30 PM EST LIMITED ORAL EVALUATION - PROBLEM FOCUSED Routine 04/01/2024 2:30 PM EST BITEWINGS - 3 RADIOGRAPHIC IMAGES Routine 11/06/2023 2:30 PM EDT BI MAMMOGRAM SCREENING TOMOSYNTHESIS BILATERAL Routine 05/26/2023 1:36 PM EDT PAP SMEAR Routine 12/24/2022 COLONOSCOPY Routine 01/25/2022 from Last 3 Months or Most Recently Relevant to Health Maintenance Results * BI Mammogram Screening Tomosynthesis Bilateral (05/26/2023 1:36 PM EDT) Anatomical Region Laterality Modality Breast Bilateral Mammography 05/26/2023 1:36 PM EDT Narrative 06/03/2023 5:35 AM EDT ? [facility] ? [address] ?[place], [place] [address] ? Mammography Report ? Signed ? Patient: Edward,Suze ?MR#: [id number] ? : 1960 ?Acct:[id number] ? Age/Sex: 62 / F ?ADM Date: 05/26/23 ? Loc: HO.MAMMO ? Attending Dr: Shae Villalba MD ? Ordering Physician: Shae Villalba MD ?Results: 1Ne ?? gative ? Date of Service: 05/26/23 ?Follow Up: 1 Year From Orig ?? inal Mammogram ? Procedure(s): MM tomosynthesis screening BI ?? Accession Number(s): [id number] ? cc: Shae Villalba MD ? EXAMINATION: ?? MM SCREENING DIGITAL BREAST TOMOSYNTHESIS, BILATERAL ? CLINICAL INFORMATION: ? Screening. Asymptomatic. ? COMPARISON: ?? Mammography: This study is compared with prior exams dating back to ?? 2019. ? TECHNIQUE: ?? Digital breast tomosynthesis is performed in both the craniocaudal and ?? mediolateral oblique views along with computer-aided detection (CAD). ?? Synthesized 2D images are generated from the tomosynthesis. ? FINDINGS: ?? There are scattered areas of fibroglandular density (ACR BI-RADS breast ?? composition Category b). ? There are no significant masses, abnormal calcifications, or other ?? abnormalities. ? MM/MM tomosynthesis screening BI ?? IMPRESSION: ?? No mammographic evidence of malignancy. ? ASSESSMENT: ? BI-RADS BI-RADS 1 - Negative ? RECOMMENDATION: ?? Routine annual mammography screening. ? 1 year F/U ? This examination should not preclude the clinical evaluation of a ?? suspicious palpable abnormality. ? This patient's information was entered into a reminder system with a ?? target due date for their next mammogram. ? Dictated By: ?Trista Leal MD ? Signed By: ?<Electronically signed by Trista Leal MD in OV> ? 06/03/23 0531 ? DD/ 1336 ? TD/TT: ? Medical Manager: ? Procedure Note Dexter, Image - 06/03/2023 [place] [facility] [address] [place] [address] Mammography Report Signed Patient: Catalino Edward#: [id number] : 9Acct:[id number] Age/Sex: 62 / FADM Date: 05/26/23 Loc: [facility] Attending Dr: Shae Villalba MD Ordering Physician: Shae Villalbaults: 1Ne gative Date of Service: 05/26/23Follow Up: 1 Year From Orig inal Mammogram Procedure(s): MM tomosynthesis screening BI Accession Number(s): [id number] cc: Shae Villalba MD EXAMINATION: MM SCREENING DIGITAL BREAST TOMOSYNTHESIS, BILATERAL CLINICAL INFORMATION: Screening. Asymptomatic. COMPARISON: Mammography: This study is compared with prior exams dating back to 2019. TECHNIQUE: Digital breast tomosynthesis is performed in both the craniocaudal and mediolateral oblique views along with computer-aided detection (CAD). Synthesized 2D images are generated from the tomosynthesis. FINDINGS: There are scattered areas of fibroglandular density (ACR BI-RADS breast composition Category b). There are no significant masses, abnormal calcifications, or other abnormalities. MM/MM tomosynthesis screening BI IMPRESSION: No mammographic evidence of malignancy. ASSESSMENT: BI-RADS BI-RADS 1 - Negative RECOMMENDATION: Routine annual mammography screening. 1 year F/U This examination should not preclude the clinical evaluation of a suspicious palpable abnormality. This patient's information was entered into a reminder system with a target due date for their next mammogram. Dictated By: Trista Leal MD Signed By: <Electronically signed by Trista Leal MD in OV> 06/03/23 0531 DD/ 1336 TD/TT: Medical Manager: us Shae Villalba MD IMG BI PROCEDURES Final Resul t * Pap Smear (12/24/2022) Pap Negative for intraephithelial lesion or malignancy Negative for intraephithelial lesion or malignancy, Other Swab 12/24/2022 us Shae Villalba MD LAB CYTOLOGY ORDERABLES Final Result * Colonoscopy (01/25/2022) Anatomical Region Laterality Modality Endoscopy Narrative 01/25/2022 Normal, no polyps, repeat in 2031 us Shae Villalba MD ENDOSCOPY PROCEDURE ORDERABLE S Final Result from Last 3 Months or Most Recently Relevant to Health Maintenance Insurance [facility] [address] DENTAL - [facility] Care Teams Public Health Representative Relationship Specialty Start Date End Date hSae Villalba MD [address] [place] [address] PCP - General Family Medicine 02/10/18
--- OUTSIDE RECORDS SUMMARY | 2024-05-20 11:46 | XMS_ITS | Encounter Summary ---
Author Organization [facility] [facility] Address [address] [facility] 7 [place] [address] Care Team Providers Care It Support Consultant Name Role Phone Shae Villalba MD Primary Care Provider [phone] Encounter Details Date Type Department Care Team (Late Contact Info) Description 11/13/2022 Abstract [employer] [facility] [address] [place] [address] Shae Villalba MD [address] [place], [place] [phone] Social History Tobacco Use Types Packs/Day Years Used Date Smoking Tobacco: Former Cigarettes 1 10 Passive Smoke Exposure: Never Smokeless Tobacco: Never Alcohol Use Standard Drinks/Week Comments Yes 1 (1 standard drink = 0.6 oz pur e alcohol) Comments Unknown Sex and Gender Information Value Date Recorded Sex Assigned at Female 12/10/2021 10:16 AM EDT Legal Sex Female 10:16 AM EDT Gender Identity Female 12/10/2021 10:16 AM EDT Sexual Orientation Straight 12/10/2021 10 :16 AM EDT documented as of this encounter Plan of Treatment Upcoming Encounters Date Type Department Care Team (Late Contact Info) Description 06/10/2024 1:15 PM EDT Clinical Support [facility] [address] [place] [address] 11/16/2024 2:00 PM EDT Office Visit [facility] [address] [place] [address] Joe Banda documented as of this encounter Visit Diagnoses Not on filedocumented in this encounter Care Teams It Support Consultant Relationship Specialty Start Date End Date Shae Villalba MD [address] [place] [id number] PCP - General Family Medicine 02/10/18 documented as of this encounter
--- OUTSIDE RECORDS SUMMARY | 2024-05-20 11:46 | XMS_ITS | Encounter Summary ---
Author Organization [employer] Address [address] [facility] 7t [place] [address] Care Team Providers Care Medical Territory Manager Name Role Phone Shae Villalba MD Primary Care Provider [phone] Encounter Details Date Type Department Care Team (Late Contact Info) Description 08/12/2022 Orders Only [facility] [address] [place] [address] Shae Villalba MD [address] [place] [address] Dyslipidemia (Primary Dx); Age-related osteoporosis without current pathological fracture; Vitamin D deficiency Social History Tobacco Use Types Packs/Day Years [...] Description 06/10/2024 1:15 PM EDT Clinical Support [facility] [address] [place] [address] 11/16/2024 2:00 PM EDT Office Visit [facility] [address] [place] [address] Joe Banda Scheduled Orders Name Type Priority Associated Diagnoses Orde r Schedule Lipid Panel, Standard Lab Routine Dyslipidemia Age-related osteoporosis without current pathological fracture Expected: 09/12/2022 (Approximate), Expires: 08/13/2023 Hepatic Function Panel Lab Routine Dyslipidemia Age-related osteoporosis without current pathological fracture Expected: 09/12/2022 (Approximate), Expires: 08/13/2023 CBC auto differential Lab Routine Dyslipidemia Age-related osteoporosis without current pathological fracture Expected: 08/12/2022 (Approximate), Expires: 08/13/2023 Basic Metabolic Panel Lab Routine Dyslipidemia Age-related osteoporosis without current pathological fracture Expected: 08/12/2022 (Approximate), Expires: 08/13/2023 Creatine Kinase, Total Lab Routine Dyslipidemia Age-related osteoporosis without current pathological fracture Expected: 08/12/2022 (Approximate), Expires: 08/13/2023 Vitamin D, 25-Hydroxy, Total, Immunoassay Lab Routine Dyslipidemia Age-related osteoporosis without current pathological fracture Expected: 08/12/2022 (Approximate), Expires: 08/13/2023 documented as of this encounter Visit Diagnoses Diagnosis Dyslipidemia- Primary Other and unspecified hyperlipidemia Age-related osteoporosis without current pathological fracture Vitamin D deficiency documented in this encounter Care Teams Medical Territory Manager Relationship Specialty Start Date End Date Shae Villalba MD [address] [place] [id number] PCP - General Family Medicine 02/10/18 documented as of this encounter
--- OUTSIDE RECORDS SUMMARY | 2024-05-20 11:47 | XMS_ITS | Encounter Summary ---
Author Organization [facility] Address [address] [facility] 7t [place] [address] Care Team Providers Care Director Of Dance Name Role Phone Shae Villalba MD Primary Care Provider [phone] Encounter Details Date Type Department Care Team (Latest Contact Info) Description 10/22/2018 Abstract [facility] CONVERSIONS Dental, Provider, DDS Social History Tobacco Use Types Packs/Day Years [...] Description 06/10/2024 1:15 PM EDT Clinical Support [facility] [address] [place] [address] 11/16/2024 2:00 PM EDT Office Visit [facility] [address] [place] [address] Joe Banda documented as of this encounter Visit Diagnoses Not on filedocumented in this encounter Care Teams Director Of Dance Relationship Specialty Start Date End Date Shae Villalba MD [address] [place] [address] PCP - General Family Medicine 02/10/18 documented as of this encounter
--- OUTSIDE RECORDS SUMMARY | 2024-05-20 11:47 | XMS_ITS | Encounter Summary ---
Author Organization [employer] Address [address] [facility] [address] [place] [address] Care Team Providers Care Stock Repairer Name Role Phone Shae Villalba MD Primary Care Provider [phone] Reason for Visit * Reason Onset Date Comments PA for dental work [facility] 02/06/2024 Encounter Details Date Type Department Care Team ([facility] st Contact Info) Description 02/06/2024 Telephone [facility] [address] [place] [address] Jocy Hall DMD PA for dental work [facility] Social History Tobacco Use Types Packs/Day Years Used Date Smoking Tobacco: Former Cigarettes 1 10 Passive Smoke Exposure: Never Smokeless Tobacco: Never Alcohol Use Standard Drinks/Week Comments Yes 1 (1 standard drink = 0.6 oz pur e alcohol) Housing Stability Answer Date Recorded What is your housing situation today? I have raffy gayle 01/16/[address] you li ve. Do you have problems with any of the following? None of the above 01/16/2023 Food Insecurity Answer Date Recorded Within the past 12 months, y ou worried that your food would run out before you got money to buy more: Never True 01/16/2023 Within the past 12 months,th e food you bought just didn't last and you didn't have enough money to get more: Never True 08/2022 Transportation Answer Date Recorded In the past 12 months, has l ack of transportation kept you from medical appts, meetings, work or from getting things needed for daily living? No 01/16/2023 Utilities Answer Date Recorded In the past 12 months, has t he electric, gas, oil or water company threatened to shut off services in your home? No 01/16/2023 Comments Unknown Sex and Gender Information Value Date Recorded Sex Assigned at Female 12/10/2021 10:16 AM EDT Legal Sex Female 10:16 AM EDT Gender Identity Female 12/10/2021 10:16 AM EDT Sexual Orientation Straight 12/10/2021 10 :16 AM EDT documented as of this encounter Miscellaneous Notes * Telephone Encounter - Corrie Salinas - 02/06/2024 2:03 PM EST Patient called in to check in on the status of PA for dental work. Micki ernandez is going to follow up with reach out to patient. Explained this to patient as she thought it was a quicker process.Assured patient that office will reach out to her with an update once they follow up with insuranceDR documented in this encounter Plan of Treatment Upcoming Encounters Date Type Department Care Team (Late st Contact Info) Description 06/10/2024 1:15 PM EDT Clinical Support [facility] [address] [place] [address] 11/16/2024 2:00 PM EDT Office Visit [facility] [address] [place] [address] Joe Banda documented as of this encounter Visit Diagnoses Not on filedocumented in this encounter Care Teams Stock Repairer Relationship Specialty Start Date End Date Shae Villalba MD [address] [place] [address] PCP - General Family Medicine 02/10/18 documented as of this encounter
--- OUTSIDE RECORDS SUMMARY | 2024-05-20 11:47 | XMS_ITS | Encounter Summary ---
Author Organization [employer] Address [address] [facility] [address] 7t [place] [address] Care Team Providers Care Die Casting Machine Setter Name Role Phone Shae Villalba MD Primary Care Provider [phone] Reason for Visit * Reason Onset Date Comments rs appt 03/02/2024 Encounter Details Date Type Department Care Team ([facility] st Contact Info) Description 03/02/2024 Telephone [facility] [address] [place] [address] Elba Ryan rs appt Social History Tobacco Use Types Packs/Day Years [...] * Telephone Encounter - Corrie Salinas - 03/02/2024 11:17 AM EST Patient received reminder of appt and cancelled via interface due to being home with COVID. Would like to rs appt. Please reach out to patient for rs documented in this encounter Plan of Treatment Upcoming Encounters Date Type Department Care Team (Late st Contact Info) Description 06/10/2024 1:15 PM EDT Clinical Support [facility] MED & PEDS [address] [place] [address] 11/16/2024 2:00 PM EDT Office Visit [facility] ADULT DENTAL [address] [place] [address] Joe Banda documented as of this encounter Visit Diagnoses Not on filedocumented in this encounter Care Teams Die Casting Machine Setter Relationship Specialty Start Date End Date Shae Villalba MD [address] [place] [address] PCP - General Family Medicine 02/10/18 documented as of this encounter
--- OUTSIDE RECORDS SUMMARY | 2024-05-20 11:47 | XMS_ITS | Encounter Summary ---
Author Organization [facility] Address 75 [facility] 7 [place] [address] Care Team Providers Care Crm Marketing Analyst Name Role Phone Shae Villalba MD Primary Care Provider [phone] Encounter Details Date Type Department Care Team (Latest Contact Info) Description 08/30/2020 Abstract [facility] CONVERSIONS Dental, Provider, DDS Social History [...] 1:15 PM EDT Clinical Support [facility] MED & PEDS [address] [place] [address] 11/16/2024 2:00 PM EDT Office Visit [facility] ADULT DENTAL [address] [place] [address] Joe Banda documented as of this encounter Visit Diagnoses Not on filedocumented in this encounter Care Teams Crm Marketing Analyst Relationship Specialty Start Date End Date Shae Villalba MD [address] [place] [address] PCP - General Family Medicine 02/10/18 documented as of this encounter
--- OUTSIDE RECORDS SUMMARY | 2024-05-20 11:47 | XMS_ITS | Encounter Summary ---
Author Organization [facility] Address 75 [facility] 7 [place] [address] Care Team Providers Care Bag Machine Operator Name Role Phone Shae Villalba MD Primary Care Provider [phone] Encounter Details Date Type Department Care Team (Latest Contact Info) Description 09/07/2021 Abstract [facility] CONVERSIONS Dental, Provider, DDS Social History Tobacco [...] Description 06/10/2024 1:15 PM EDT Clinical Support [facility] MED & PEDS [address] [place] [address] 11/16/2024 2:00 PM EDT Office Visit [facility] ADULT DENTAL [address] [place] [address] Joe Banda documented as of this encounter Visit Diagnoses Not on filedocumented in this encounter Care Teams Bag Machine Operator Relationship Specialty Start Date End Date Shae Villalba MD [address] [place] [address] PCP - General Family Medicine 02/10/18 documented as of this encounter
[2024-05-20 14:42] LABS: MANUAL DIFF FLAG NO
[2024-05-20 14:50] LABS: Basophils Absolute Auto 0.1 X10*3/uL (0.0-0.2); Basophils Percent Auto 1.1 % (0-2); Eosinophils Absolute Auto 0.3 X10*3/uL (0.0-0.4); Eosinophils Percent Auto 4.5 % (0-4); Hematocrit 40.8 % (37.0-47.0); Hemoglobin 13.1 g/dl (12.0-16.0); Imm Gran Abs Auto 0.02 X10*3/uL (0.00-0.03); Imm Gran Pct Auto 0.3 % (0.0-0.4); Lymphocytes Absolute Auto 3.5 X10*3/uL (1.2-4.9); Lymphocytes Percent Auto 48.2 % (20-40); Mean Corpuscular HGB Conc 32.1 g/dl (31.0-35.0); Mean Corpuscular Volume 81.1 fL (80.0-98.0); Mean Platelet Volume 11.3 fL (9.4-12.3); Monocytes Absolute Auto 0.6 X10*3/uL (0.1-1.2); Monocytes Percent Auto 8.6 % (2-11); Neutrophils Absolute Auto 2.7 x10*3/uL (2.0-8.3); Neutrophils Percent Auto 37.3 % (45-73); Platelet Count 299 X10*3/uL (160-400); Red Blood Count 5.03 X10*6/uL (4.20-5.50); Red Cell Distribution Width 14.9 % (11.0-16.0); White Blood Count 7.2 X10*3/uL (4.8-10.8)
[2024-05-20 15:18] LABS: Alanine Aminotransferase 17 U/L (0-31); Albumin Level 4.4 g/dL (3.5-5.0); Anion Gap 13 (12-20); Aspartate Amino Transferase 25 U/L (5-31); Bilirubin Direct 0.1 mg/dL (0.0-0.5); Bilirubin Total 0.4 mg/dL (0.0-1.0); Blood Urea Nitrogen 21 mg/dL (9-16); Calcium 9.5 mg/dL (8.4-10.2); Carbon Dioxide 26 mmol/L (22-29); Chloride 108 mmol/L (96-108); Cholesterol 211 mg/dL (<200); Estimated Glomerular Filt Rate > 60; Glucose Fasting 96 mg/dL (60-99); HDL Cholesterol 54 mg/dL (>40); LDL Cholesterol Calculated 137 mg/dL (<100); Potassium 4.4 mmol/L (3.3-5.1); Sodium 143 mmol/L (135-145); Triglycerides 100 mg/dL (<150)
[2024-05-20 15:28] LABS: Alkaline Phosphatase 38 U/L (39-117); TSH reflex Free T4 3.25 uIU/mL (0.32-4.0); Vitamin D 25-OH Total 64.9 ng/mL (>30)
[2024-05-20 15:38] LABS: Vitamin B12 790 pg/mL (200-900)
== END 2024-05-20 10:07 | disposition home or self-care (01) ==
LOC: HO.CHCLDS 10:06
PROVIDERS: Visit Provider Pediatrics
DX: E78.5 Hyperlipidemia, unspecified (principal); M81.0 Age-related osteoporosis without current pathological fracture; E55.9 Vitamin D deficiency, unspecified
CPT/HCPCS: 36415; 80048; 80061; 80076; 82306; 82550; 82607; 82746; 84443; 85025

== ENCOUNTER 2024-06-03 12:56 | Outpatient (REF) | payer OTHER, SELFPAY ==
--- OUTSIDE RECORDS SUMMARY | 2024-06-03 15:14 | XMS_ITS | Clinical Summary ---
Author Organization [employer] Address 75 [facility] 7t [place] [address] Care Team Providers Care Buffing And Polishing Wheel Repairer Name Role Phone Shae Villalba MD Primary Care Provider [phone] Allergies Active Allergy Reactions Criticality Noted Date [...] BP daily 1 kit 05/14/19 25 Active magnesium oxide (Mag-Ox) 400 MG tablet Take 1 tablet (400 mg) by mouth Once per day. 30 tablet 11 05/29/19 25 026 Active Calcium Carb-Cholecalcif rene (Calcium 600+D) 600-10 MG-MCG tablet Take 1 tablet by mouth 2 times daily. 180 tablet 3 05/29/19 25 Active Calcium Carb-Cholecalcif rene (Calcium Plus [...] Encounters Date Type Department Care Team Description 06/01/2024 Telephone [facility] MED & PEDS [address] [place] [address] Shae Villalba MD Medication Question 05/28/2024 Orders Only [facility] MED & PEDS [address] [place] [address] Shae Villalba MD 05/28/[address] [address] Shae Villalba MD Results 05/27/[address] [address] Shae Villalba MD Lab Orders 05/24/[address] [address] Shae Villalba MD Durable Medical Equipment 05/13/2024 2:15 PM EDT Office Visit [facility] MED & PEDS [address] [place] [address] Shae Villalba MD Dyslipidemia (Primary Dx); Age-related osteoporosis without current pathological fracture; Vitamin D deficiency; Elevated BP without diagnosis of hypertension; Routine general medical examination at a health care facility 05/13/2024 Travel 05/11/2024 2:00 PM EDT Office Visit [facility] ADULT DENTAL [address] [place] [address] Joe Banda Dental calculus (Primary Dx) 05/11/2024 Telephone [facility] MED [facility] PEDS [address] [place] [address] Shae Villalba MD Chart Prep 05/05/2024 Patient Outreach [address] [address] Shae Villalba MD Pre-visit Planning (SDOH screening negative and Tobacco screening negative) 04/01/2024 2:30 PM EST Office Visit [facility] ADULT DENTAL [address] [place] [address] Jocy Hall DMD from Last 3 Months Immunizations Name Administration [facility] [address] [place] [address] 06/24/2024 1:00 PM EDT Office Visit [facility] ADULT DENTAL [address] [place] [address] Jocy Hall DMD 11/16/2024 2:00 PM EDT Office Visit [facility] ADULT DENTAL [address] [place] [address] Joe Banda Health Maintenance Due Date Last Done Comments CT Colonography 1960 Dental X-Ray: Full Mouth 1960 FIT DNA/Cologuard 1960 FIT 1960 FOBT 1960 Sigmoidoscopy 1960 Hepatitis C Screening 1976 Hepatitis B Vaccines (2 of 3 - 19+ 3-dose series) 12/30/2011 12/02/2011 Zoster Vaccines (2 of 2) 03/07/2020 01/11/2020 DTaP/Tdap/Td Vaccines (2 - Td or Tdap) 11/25/2021 11/26/2011 COVID-19 Vaccine ( season) 2023 Dental X-Ray: Bitewings 11/06/2024 11/06/2023, [...] Procedure Name Priority Date/Time Associated Diagnosis Comments VITAMIN B12/FOLATE, SERUM PANEL Routine 05/20/2024 10:08 AM EDT Age-related osteoporosis without current pathological fracture CREATINE KINASE, TOTAL Routine 05/20/2024 10:08 AM EDT Dyslipidemia Age-related osteoporosis without current pathological fracture Vitamin D deficiency LIPID PANEL, STANDARD Routine 05/20/2024 10:08 AM EDT Dyslipidemia Age-related osteoporosis without current pathological fracture Vitamin D deficiency TSH W/REFLEX TO FT4 Routine 05/20/2024 1 0:08 AM EDT Dyslipidemia Age-related osteoporosis without current pathological fracture Vitamin D deficiency VITAMIN D,25-OH,TOTAL,IA Routine 05/20/2024 10:08 AM EDT Dyslipidemia Age-related osteoporosis without current pathological fracture Vitamin D deficiency HEPATIC FUNCTION PANEL Routine 05/20/2024 10:08 AM EDT Dyslipidemia Age-related osteoporosis without current pathological fracture Vitamin D deficiency CBC WITH AUTO DIFFERENTIAL Routine 05/20/2024 10:08 AM EDT Dyslipidemia Age-related osteoporosis without current pathological fracture Vitamin D deficiency BASIC METABOLIC PANEL, FASTING Routine 05/20/2024 10:08 AM EDT Dyslipidemia Age-related osteoporosis without current pathological fracture Vitamin D deficiency PERIODIC ORAL EVALUATION - ESTABLISHED PATIENT Routine [...] Recently Relevant to Health Maintenance Results * (ABNORMAL) Basic Metabolic Panel, Fasting (05/20/2024 10:08 AM EDT) Sodium 143 135 - 145 mmol/L [facility] Potassium 4.4 3.3 - 5.1 mmol/L [facility] Chloride 108 96 - 108 mmol/L [facility] Carbon Dioxide 26 22 - 29 mmol/L [facility] Anion Gap 13 12 - 20 [facility] Urea Nitrogen (BUN) 21(H) 9 - 16 mg/dL [facility] Creatinine, Serum 0.77 0.5 - 1.4 mg/dL [facility] Estimated Glomerular Filt Rate >60 [facility] Comment:Chronic Kidney Disea se: Estimated GFR < 60 mL/min/1.81f9Hdvoth Kidney Disease: Estimated GFR < 15 mL/min/1.73m2 Glucose Fasting 96 60 - 99 mg/dL [facility] Calcium 9.5 8.4 - 10.2 mg/dL [facility] Blood Venous blood specimen / Unknown 05/20/2024 10:08 AM EDT 05/20/2024 2:37 PM EDT us Shae Villalba MD LAB BLOOD ORDERABLES Final Re sult [facility] [address] [place], [place] [phone] * Vitamin D, 25-Hydroxy, Total, Immunoassay (05/20/2024 10:08 AM EDT) Vitamin D 25-OH Total 64.9 >30 ng/mL [facility] Comment: Health Based Reference Values*< 20 ??ng/mL ??Ludvlqidf89-02 ng/mL ??Insufficient> 30 ??ng/mL ??Sufficient*Gerardo SUAREZ. N Engl J Med. 2007;357:266-280There is no well-established upper level of normal vitamin Dlevels. Some laboratories use 50 ng/mL as an upper limit ofnormal. However, toxicity is patient-dependent and may occurat any level. Careful correlation with the patient'spresentation is necessary and, if there is concern forvitamin D toxicity, treatment should be consideredirrespective of the serum level.Care must be taken in interpreting Vitamin D results fromdifferent laboratories and methodologies. ??Published datademonstrated that results from patients undergoinghemodialysis may show a negative bias when tested withvarious automated 25-OH vitamin D assays when compared toLC- MS/MS.When testing samples from patients whose predominant form ofVitamin D is Vitamin D2, such as patients receiving VitaminD2 supplementation, results that are subtherapeutic shouldbe confirmed with another method such as LC-MS/MS. Blood Venous blood specimen / Unknown 05/20/2024 10:08 AM EDT 05/20/2024 2:37 PM EDT us Shae Villalba MD LAB BLOOD ORDERABLES Final Re sult [facility] [address] [place] [phone] * Vitamin B12/Folate, Serum Panel (05/20/2024 10:08 AM EDT) Vitamin B12 790 200 - 900 pg/mL [facility] Comment:NORMAL 200-900 PG/ML INDETERMINATE 160-199 PG/ML DEFICIENT < 160 PG/ML Folate 15.0 > or = 4.0 ng/mL [facility] Comment:Reference Values:> o r = 4.0 ng/mL< 4.0 ng/mL suggests folate deficiency Methotrexate, aminopterin and folinic acid(leucovorin) are chemotherapeutic agents whose molecularstructures are similar to folate; therefore, the Architectfolate assay cannot be used for patients using these drugs. Blood Venous blood specimen / Unknown 05/20/2024 10:08 AM EDT 05/20/2024 2:37 PM EDT us Shae Villalba MD LAB BLOOD ORDERABLES Final Re sult Performing Organization Address [facility] Co de Phone Number [facility] [address] [place] [phone] * TSH W/Reflex to FT4 (05/20/2024 10:08 AM EDT) Pathologist [facility] TSH reflex Free T4 3.25 0.32 - 4.0 uIU/mL [facility] Blood Venous blood specimen / Unknown 05/20/2024 10:08 AM EDT 05/20/2024 2:37 PM EDT us Shae Villalba MD LAB BLOOD ORDERABLES Final Re sult Performing Organization Address [facility] Co de Phone Number [facility] [address] [place] [phone] * (ABNORMAL) CBC auto differential (05/20/2024 10:08 AM EDT) [facility] White Blood Count 7.2 4.8 - 10.8 X10*3/uL [facility] Red Blood Count 5.03 4.20 - 5.50 X10*6/uL [facility] Hemoglobin 13.1 12.0 - 16.0 g/dl [facility] Hematocrit 40.8 37.0 - 47.0 % [facility] Mean Corpuscular Volume 81.1 80.0 - 98.0 fL [facility] Mean Corpuscular Hemoglobin 26.0(L) 27.0 - 33.0 pg [facility] Mean Corpuscular HGB Conc 32.1 31.0 - 35.0 g/dl [facility] Red Cell Distribution Width 14.9 11.0 - 16.0 % [facility] Platelet Count 299 160 - 400 X10*3/uL [facility] Mean Platelet Volume 11.3 9.4 - 12.3 fL [facility] Neutrophils Percent Auto 37.3(L) 45 - 73 % [facility] Imm Gran Pct Auto 0.3 0.0 - 0.4 % [facility] Lymphocytes Percent Auto 48.2(H) 20 - 40 % [facility] Monocytes Percent Auto 8.6 2 - 11 % [facility] Eosinophils Percent Auto 4.5(H) 0 - 4 % [facility] Basophils Percent Auto 1.1 0 - 2 % [facility] NRBC Pct Auto 0.0 0.0 - 0.2 /100WBC [facility] Neutrophils Absolute Auto 2.7 2.0 - 8.3 x10*3/uL [facility] Imm Gran Abs Auto 0.02 0.00 - 0.03 X10*3/uL [facility] Lymphocytes Absolute Auto 3.5 1.2 - 4.9 X10*3/uL [facility] Monocytes Absolute Auto 0.6 0.1 - 1.2 X10*3/uL [facility] Eosinophils Absolute Auto 0.3 0.0 - 0.4 X10*3/uL [facility] Basophils Absolute Auto 0.1 0.0 - 0.2 X10*3/uL [facility] NRBC Abs Auto 0.000 0.0 - 0.012 X10*3/uL [facility] Blood Venous blood specimen / Unknown 05/20/2024 10:08 AM EDT 05/20/2024 2:37 PM EDT us Shae Villalba MD LAB BLOOD ORDERABLES Final Re sult [facility] [address] [place] [phone] * Creatine Kinase, Total (05/20/2024 10:08 AM EDT) Creatine Kinase Total 110 26 - 140 U/L [facility] Blood Venous blood specimen / Unknown 05/20/2024 10:08 AM EDT 05/20/2024 2:37 PM EDT us Shae Villalba MD LAB BLOOD ORDERABLES Final Re sult Performing Organization Address [facility] Co de Phone Number [facility] [address] [place] [phone] * (ABNORMAL) Hepatic Function Panel (05/20/2024 10:08 AM EDT) Bilirubin, Total 0.4 0.0 - 1.0 mg/dL [facility] Bilirubin, Direct 0.1 0.0 - 0.5 mg/dL [facility] Aspartate Amino Transferase 25 5 - 31 U/L [facility] Alanine Aminotransferase 17 0 - 31 U/L [facility] Total Protein 7.0 6.5 - 8.0 g/dL [facility] Albumin Level 4.4 3.5 - 5.0 g/dL [facility] Alkaline Phosphatase 38(L) 39 - 117 U/L [facility] Blood Venous blood specimen / Unknown 05/20/2024 10:08 AM EDT 05/20/2024 2:37 PM EDT us Shae Villalba MD LAB BLOOD ORDERABLES Final Re sult Performing Organization Address [facility] Co de Phone Number [facility] [address] [place] [phone] * (ABNORMAL) Lipid Panel, Standard (05/20/2024 10:08 AM EDT) Triglycerides 100 <150 mg/dL [facility] Comment:Desirable Triglyceri de: less than 150 mg/dLBorderline High Triglyceride 150-199 mg/dLHigh Triglyceride: 200-499 mg/dLVery High Triglyceride: greater than or equal to 5OO mg/dL Cholesterol 211(H) <200 mg/dL [facility] Comment:Desirable Cholestero l: less than 200 mg/dLBorderline High Cholesterol: 200-239 mg/dLHigh Cholesterol: greater than 239 mg/dL LDL Cholesterol Calculated 137(H) <100 mg/dL [facility] Comment:Desirable LDL: less than 100 mg/dLNear Optimal/Above Optimal LDL: 110- 129 mg/dLBorderline High LDL: 130-159 mg/dLHigh LDL: 160-189 mg/dLVery High LDL: greater than or equal to 190 mg/dL HDL Cholesterol 54 >40 mg/dL [facility] Comment:Desirable HDL: great er than 40 mg/dL Note: This HDL assay may give artificially low results in patients with liver disease. Blood Venous blood specimen / Unknown 05/20/2024 10:08 AM EDT 05/20/2024 2:37 PM EDT us Shae Villalba MD LAB BLOOD ORDERABLES Final Re sult [facility] [address] [place] [phone] * BI Mammogram Screening Tomosynthesis Bilateral (05/26/2023 1:36 PM EDT) Anatomical Region Laterality Modality Breast Bilateral Mammography 05/26/2023 1:36 PM EDT Narrative 06/03/2023 5:35 AM EDT ? [facility] [address] ?[place] [address] ? Mammography Report ? Signed ? Patient: Edward,Suze ?MR#: [id number] ? : 1960 ?Acct:[id number] ? Age/Sex: 62 / F ?ADM Date: 04/15/24 ? Loc: HO.MAMMO ? Attending Dr: Shae Villalba MD ? Ordering Physician: Shae Villalba MD ?Results: 1Ne ?? gative ? Date of Service: 05/26/23 ?Follow Up: 1 Year From Orig ?? inal Mammogram ? Procedure(s): MM tomosynthesis screening BI ?? Accession Number(s): [id number] ? cc: Shae Villalba MD ? EXAMINATION: ?? MM SCREENING DIGITAL BREAST TOMOSYNTHESIS, BILATERAL ? CLINICAL INFORMATION: ? Screening. Asymptomatic. ? COMPARISON: ?? Mammography: This study is compared with prior exams dating back to ?? 2018. ? TECHNIQUE: ?? Digital breast tomosynthesis is [...] in OV> ? 06/03/23 0531 ? DD/ ? TD/TT: ? Physical Therapy Technician: ? Procedure Note Donotuseinterpreter, Image - 06/03/2023 [place] [facility] [address] [place], [place] [address] Mammography Report Signed Patient: Catalino Edward#: [id number] : 9Acct:[id number] Age/Sex: 62 / FADM Date: 05/26/23 Loc: HO.MAMMO Attending Dr: Shae Villalba MD Ordering Physician: Shae Villalba MDResults: 1Ne gative Date of Service: 05/26/23Follow Up: 1 Year From Orig inal Mammogram Procedure(s): MM tomosynthesis screening BI Accession Number(s): [id number] cc: Shae Villalba MD EXAMINATION: MM SCREENING [...] in OV> 06/03/23 0531 DD/ 1336 TD/TT: Physical Therapy Technician: us Shae Villalba MD IMG BI PROCEDURES Final Resul t * Pap Smear (12/24/2022) Pap Negative for intraephithelial lesion or malignancy Negative for intraephithelial lesion or malignancy, Other Swab 12/24/2022 Shae Villalba MD LAB CYTOLOGY ORDERABLES Final Result * Colonoscopy (01/25/2022) Anatomical Region Laterality Modality Endoscopy Narrative 01/25/2022 Normal, no polyps, repeat in 2031 Shae Villalba MD ENDOSCOPY PROCEDURE ORDERABLE S Final Result from Last 3 Months or Most Recently Relevant to Health Maintenance [place] [address] [address] - [facility] Care Teams Buffing And Polishing Wheel Repairer Relationship Specialty Start Date End Date Shae Villalba MD [address] [place] [address] PCP - General Family Medicine 02/10/18
--- OUTSIDE RECORDS SUMMARY | 2024-06-03 15:14 | XMS_ITS | Encounter Summary ---
Author Organization [employer] [facility] Address [address] [facility] 7t [place] [address] Care Team Providers Care Transmission Repairer Name Role Phone Shae Villalba MD Primary Care Provider [phone] Encounter Details Date Type Department Care Team (Late Contact Info) Description 11/13/2022 Abstract [facility] [address] [place] [address] Shae Villalba MD [address] [place], [place] [phone] Social History Tobacco Use Types Packs/Day Years [...] [facility] [address] [place] [address] 06/24/2024 1:00 PM EDT Office Visit [facility] ADULT DENTAL [address] [place] [address] Jocy Hall DMD 11/16/2024 2:00 PM EDT Office Visit [facility] ADULT DENTAL [address] [place] [address] Joe Banda documented as of this encounter Visit Diagnoses Not on filedocumented in this encounter Care Teams Transmission Repairer Relationship Specialty Start Date End Date Shae Villalba MD [address] [place] [phone] PCP - General Family Medicine 02/10/18 documented as of this encounter
--- OUTSIDE RECORDS SUMMARY | 2024-06-03 15:14 | XMS_ITS | Encounter Summary ---
Author Organization [employer] Address 75 [facility] 7t [place] [address] Care Team Providers Care Hay Stacker Operator Name Role Phone Shae Villalba MD Primary Care Provider [phone] Encounter Details Date Type Department Care Team (Late st Contact Info) Description 08/12/2022 Orders Only [facility] MED & PEDS [address] [place] [address] Shae Villalba MD [address] [place] [address] Dyslipidemia (Primary Dx); Age-related osteoporosis without current [...] Description 06/10/2024 1:15 PM EDT Clinical Support [facility] MED & PEDS [address] [place] [address] 06/24/2024 1:00 PM EDT Office Visit [facility] ADULT DENTAL [address] [place] [address] Jocy Hall DMD 11/16/2024 2:00 PM EDT Office Visit [facility] ADULT DENTAL [address] [place] [address] Joe Banda Scheduled Orders Name Type Priority [...] deficiency documented in this encounter Care Teams Hay Stacker Operator Relationship Specialty Start Date End Date Shae Villalba MD [address] [place] [address] [place] [address] PCP - General Family Medicine 02/10/18 documented as of this encounter
--- OUTSIDE RECORDS SUMMARY | 2024-06-03 15:15 | XMS_ITS | Encounter Summary ---
Author Organization [employer] Address [address] [facility] [address] [place] [address] Care Team Providers Care Correspondence Renew Clerk Name Role Phone Shae Villalba MD Primary Care Provider [phone] Reason for Visit * Reason Onset Date Comments rs appt 03/02/2024 Encounter Details Date Type Department Care Team ([facility] st Contact Info) Description 03/02/2024 Telephone [facility] [address] [place] [address] Elba Ryan rs appt Social History Tobacco [...] Description 06/10/2024 1:15 PM EDT Clinical Support [facility] MED & PEDS [address] [place] [address] 06/24/2024 1:00 PM EDT Office Visit [facility] ADULT DENTAL [address] [place] [address] Jocy Hall DMD 11/16/2024 2:00 PM EDT Office Visit [facility] AD[facility] D[facility] [address] [place] [address] Joe Banda documented as of this encounter Visit Diagnoses Not on filedocumented in this encounter Care Teams Correspondence Renew Clerk Relationship Specialty Start Date End Date Shae Villalba MD [address] [place] [address] PCP - General Family Medicine 02/10/18 documented as of this encounter
--- OUTSIDE RECORDS SUMMARY | 2024-06-03 15:15 | XMS_ITS | Encounter Summary ---
Author Organization [employer] [facility] Address [address] [place] [address] [address] [place] [address] Care Team Providers Care Clinical Administrator Name Role Phone Shae Villalba MD Primary Care Provider Encounter Details Date Type Department Care Team (Latest Contact Info) Description 09/07/2021 Abstract [facility] CONVERSIONS Dental, Provider, DDS Social History Tobacco [...] [facility] [address] [place] [address] 06/24/2024 1:00 PM EDT Office Visit [facility] ADULT DENTAL [address] [place] [address] Jocy Hall DMD 11/16/2024 2:00 PM EDT Office Visit [facility] ADULT DENTAL [address] [place] [address] Joe Banda documented as of this encounter Visit Diagnoses Not on filedocumented in this encounter Care Teams Clinical Administrator Relationship Specialty Start Date End Date Shae Villalba MD [address] [place] [address] PCP - General Family Medicine 02/10/18 documented as of this encounter
--- OUTSIDE RECORDS SUMMARY | 2024-06-03 15:15 | XMS_ITS | Encounter Summary ---
Author Organization [employer] Address [address] [facility] [address] [place] [address] Care Team Providers Care Environmental Science Program Director Name Role Phone Shae Villalba MD Primary Care Provider [phone] Reason for Visit * Reason Onset Date Comments Results 05/28/2024 Encounter Details Date Type Department Care Team ([facility] st Contact Info) Description 05/28/2024 Telephone [facility] MEDICINE [address] [place] [address] Shae Villalba MD [address] [place] [address] Results Social History Tobacco Use Types Packs/Day Years [...] encounter Miscellaneous Notes * Telephone Encounter - Nasrin Palacios RN - 05/28/2024 9:58 AM EDT TC to pt to review lab results. Pt verbalized understanding of results. Pt stated was searching online hydrogel injections for bone density. Pt states also she ran out of calcium tablets 5 days ago and is requesting refill of calcium, multivitamin, and stated she would like a prescription for magnesium as pt stated read online that she should be on magnesium supplement for bone density as well. Author advised will request refill of multivitamin and calcium to the provider, and advised that provider may require a follow up appointment to discuss concerns. Pt verbalized understanding and agreement with plan. * Telephone Encounter - Alfonzo Go - 05/28/2024 9:47 AM EDT TC from pt requesting call back regarding Results. Type of results: Blood Test Date when done: 05/20/24 Facility: [facility] Contact pt at [phone] documented in this encounter Plan of Treatment Upcoming Encounters Date Type Department Care Team ([facility] st Contact Info) Description 06/10/2024 1:15 PM EDT Clinical Support [facility] MED & PEDS [address] [place] [address] 06/24/2024 1:00 PM EDT Office Visit [facility] ADULT DENTAL [address] [place] [address] Jocy Hall DMD 11/16/2024 2:00 PM EDT Office Visit [facility] ADULT DENTAL [address] [place] [address] Joe Banda documented as of this encounter Visit Diagnoses Diagnosis Age-related osteoporosis without current pathological fracture documented in this encounter Additional Health Concerns Assessment Noted Time PHQ-9 Depression Total Score: 0 05/14/19 25 2:13 PM EDT documented as of this encounter Care Teams Environmental Science Program Director Relationship Specialty Start Date End Date Shae Villalba MD [address] [place] [address] PCP - General Family Medicine 02/10/18 documented as of this encounter
--- OUTSIDE RECORDS SUMMARY | 2024-06-03 15:15 | XMS_ITS | Encounter Summary ---
Author Organization [employer] Address [address] [facility] [address] [place] [address] Care Team Providers Care International Relations Professor Name Role Phone Shae Villalba MD Primary Care Provider [phone] Reason for Visit * Reason Onset Date Comments PA for dental work [facility] 02/06/2024 Encounter Details Date Type Department Care Team ([facility] st Contact Info) Description 02/06/2024 Telephone [facility] ADULT [facility]AL [address] [place] [address] Jocy Hall DMD PA for dental work [...] 06/10/2024 1:15 PM EDT Clinical Support [facility] & PED[facility] [address] [place] [address] 06/24/2024 1:00 PM EDT Office Visit [facility] ADULT DENTAL [address] [place] [address] Jocy Hall DMD 11/16/2024 2:00 PM EDT Office Visit [facility] ADULT DENT[facility] [address] [place] [address] Joe Banda documented as of this encounter Visit Diagnoses Not on filedocumented in this encounter Care Teams International Relations Professor Relationship Specialty Start Date End Date Shae Villalba MD [address] [place] [address] PCP - General Family Medicine 02/10/18 documented as of this encounter
--- OUTSIDE RECORDS SUMMARY | 2024-06-03 15:15 | XMS_ITS | Encounter Summary ---
Author Organization [facility] Address [address] [place] [address] [address] [place] [address] Care Team Providers Care Shipping And Receiving Name Role Phone Shae Villalba MD Primary Care Provider [phone] Encounter Details Date Type Department Care Team (Latest Contact Info) Description 08/30/2020 Abstract [facility] CONVERSIONS Dental, Provider, DDS Social History [...] Description 06/10/2024 1:15 PM EDT Clinical Support [facility] MED & PEDS [address] [place] [address] 06/24/2024 1:00 PM EDT Office Visit [facility] ADULT DENTAL [address] [place] [address] Jocy Hall DMD 11/16/2024 2:00 PM EDT Office Visit [facility] ADULT DENTAL [address] [place] [address] Joe Banda documented as of this encounter Visit Diagnoses Not on filedocumented in this encounter Care Teams Shipping And Receiving Relationship Specialty Start Date End Date Shae Villalba MD [address] [place] [address] PCP - General Family Medicine 02/10/18 documented as of this encounter
--- OUTSIDE RECORDS SUMMARY | 2024-06-03 15:15 | XMS_ITS | Encounter Summary ---
Author Organization [employer] Address [address] [facility] [address] [place] [address] Care Team Providers Care Pipe And Boiler Covers Supervisor Name Role Phone Shae Villalba MD Primary Care Provider [phone] Reason for Visit * Reason Onset Date Comments Medication Question 06/01/2024 Encounter Details Date Type Department Care Team ([facility] Contact Info) Description 06/01/2024 Telephone [facility] [address] [place] [address] Shae Villalba MD [address] [place] [address] Medication Question Social History Tobacco Use Types [...] encounter Miscellaneous Notes * Telephone Encounter - Vicky Cao RN - 06/02/2024 2:51 PM EDT Informed patient to only take Calcium 600+D. Patient stated understanding and agrees with plan. * Telephone Encounter - Vicky Cao RN - 06/02/2024 11:10 AM EDT TC to patient. She is wondering if she needs to take the Vitamin D3 as well as Calcium 600+D? Informed her that I would speak with provider and call her back later today. Patient agreed with the plan. * Telephone Encounter - Evelina Jeter - 06/01/2024 10:40 AM EDT Tc from pt requesting clarification on medication Calcium Carb-Cholecalciferol (Calcium 600+D) 600-10 MG-MCG tablet documented in this encounter Plan of Treatment Upcoming Encounters Date Type Department Care Team (Late st Contact Info) Description 06/10/2024 1:15 PM EDT Clinical Support [facility] MED & PEDS [address] [facility] [place] [address] 06/24/2024 1:00 PM EDT Office Visit [facility] ADULT DENTAL [address] [place] [address] Jocy Hall DMD 11/16/2024 2:00 PM EDT Office Visit [facility] ADULT DENTAL [address] [place] [address] Joe Banda documented as of this encounter Visit Diagnoses Not on filedocumented in this encounter Additional Health Concerns Assessment Noted Time PHQ-9 Depression Total Score: 0 05/14/19 25 2:13 PM EDT documented as of this encounter Care Teams Pipe And Boiler Covers Supervisor Relationship Specialty Start Date End Date Shae Villalba MD [address] [place] [address] PCP - General Family Medicine 02/10/18 documented as of this encounter
--- OUTSIDE RECORDS SUMMARY | 2024-06-03 15:15 | XMS_ITS | Encounter Summary ---
Author Organization [employer] Address [address] [facility] [address] [place] [address] Care Team Providers Care Business Assistant Name Role Phone Shae Villalba MD Primary Care Provider [phone] Reason for Visit * Reason Onset Date Comments Medication Question 02/21/2022 Encounter Details Date Type Department Care Team ([facility] Contact Info) Description 02/21/2022 Telephone [facility] [address] [place], [place] [phone] Shae Villalba MD [address] [place], [place] [phone] Medication Question Social History Tobacco Use Types [...] [facility] MED & PED[facility] [address] [place] [address] 06/24/2024 1:00 PM EDT Office Visit [facility] ADULT DENTAL [address] [place] [address] Jocy Hall DMD 11/16/2024 2:00 PM EDT Office Visit [facility] ADULT DENTAL [address] [place], [place] [phone] Joe Banda documented as of this encounter Visit Diagnoses Not on filedocumented in this encounter Care Teams Business Assistant Relationship Specialty Start Date End Date Shae Villalba MD [address] [place] [address] PCP - General Family Medicine 02/10/18 documented as of this encounter
--- OUTSIDE RECORDS SUMMARY | 2024-06-03 15:15 | XMS_ITS | Encounter Summary ---
Author Organization [facility] Address [address] [facility] [address] [place] [address] Care Team Providers Care Maxillofacial Prosthodontist Name Role Phone Shae Villalba MD Primary Care Provider [phone] Encounter Details Date Type Department Care Team (Latest Contact Info) Description 10/22/2018 Abstract [facility] CONVERSIONS Dental, Provider, DDS Social History [...] Description 06/10/2024 1:15 PM EDT Clinical Support [facility] MED & PEDS [address] [place] [address] 06/24/2024 1:00 PM EDT Office Visit [facility] ADULT DENTAL [address] [place] [address] Jocy Hall DMD 11/16/2024 2:00 PM EDT Office Visit [facility] ADULT DENTAL [address] [place] [address] Joe Banda documented as of this encounter Visit Diagnoses Not on filedocumented in this encounter Care Teams Maxillofacial Prosthodontist Relationship Specialty Start Date End Date Sahe Villalba MD [address] [place] [address] PCP - General Family Medicine 02/10/18 documented as of this encounter
== END 2024-06-03 12:57 | disposition home or self-care (01) ==
LOC: HO.MAMMO 12:56
PROVIDERS: PCP Pediatrics; Visit Provider Pediatrics
DX: Z12.31 Encounter for screening mammogram for malignant neoplasm of breast (principal)
CPT/HCPCS: 77063; 77067

== ENCOUNTER → 2024-06-03 13:00 | Outpatient (BNV) | payer OTHER, SELFPAY | PROVIDERS: PCP Pediatrics; Visit Provider Internal Medicine | DX: Z12.31 Encounter for screening mammogram for malignant neoplasm of breast (principal) | CPT/HCPCS: 77063; 77067 ==

== ENCOUNTER 2024-09-13 16:57 | Outpatient (REF) | payer OTHER, SELFPAY | END 2024-09-13 16:58 | disposition home or self-care (01) | LOC: HO.HHCLNP 16:57 | PROVIDERS: Visit Provider Pediatrics | DX: R05.8 Other specified cough (principal) | CPT/HCPCS: 87070 ==